=== PATIENT | female | born 1950 | race Caucasian/White ===

== ENCOUNTER 2020-10-02 07:00 | Day surgery (SDC) | payer MEDICARE ==
[2020-10-01 14:12] LABS: BASOPHILS # (AUTO) 0.1 X10'3 (0-0.2); BASOPHILS % (AUTO) 0.7 % (0-1); EOSINOPHILS # (AUTO) 0.1 X10'3 (0-0.9); EOSINOPHILS % (AUTO) 1.3 % (0-6); HEMATOCRIT 47.8 % (35.0-45.0); HEMOGLOBIN 16.2 g/dl (12.0-16.0); LYMPHOCYTES # (AUTO) 1.9 X10'3 (1.1-4.8); LYMPHOCYTES % (AUTO) 20.6 % (21-51); MEAN CORPUSCULAR HGB CONC 33.9 g/dL (33.0-36.5); MEAN CORPUSCULAR VOLUME 97.4 FL (78-98); MEAN PLATELET VOLUME 7.7 FL (7.4-10.4); MONOCYTES # (AUTO) 0.6 X10'3 (0-0.9); NEUTROPHILS # (AUTO) 6.7 X10'3 (1.8-7.7); NEUTROPHILS % (AUTO) 71.4 % (42-75); PLATELET COUNT 358 X10'3 (140-440); RED BLOOD COUNT 4.91 X10'6 (4.20-5.60); RED CELL DISTRIBUTION WIDTH 13.4 % (11.5-14.5); WHITE BLOOD COUNT 9.4 X10'3 (4.5-11.0)
[2020-10-01 14:21] LABS: ANION GAP 7 (8-16); BLOOD UREA NITROGEN 20 MG/DL (7-18); BUN/CREATININE RATIO 22.7 (6.6-38.0); CALCIUM 9.2 MG/DL (8.5-10.1); CHLORIDE 103 MMOL/L (99-107); CREATININE 0.88 MG/DL (0.40-0.90); GLUCOSE 99 MG/DL (70-104); POTASSIUM 4.3 MMOL/L (3.5-5.1); SODIUM 140 MMOL/L (135-145); TOTAL CARBON DIOXIDE 30.3 MMOL/L (24-32); eGFR 63 ML/MIN
[2020-10-01 14:25] LABS: PARTIAL THROMBOPLASTIN TIME 25 SECONDS (22-32)
[~2020-10-02] VITALS: Ht 165.1 cm; Wt 99.0 kg
[2020-10-02] VITALS (11 sets, daily range): BP systolic 101–138; BP diastolic 50–82
[2020-10-02] MEDS ORDERED: LIDOcaine/PRILOcaine 5gm cream TP ONE (07:20)
[2020-10-02] MEDS ORDERED: LOP12.5T PO (07:49)
[2020-10-02] MEDS ORDERED: DULO-31 PO (07:49)
[2020-10-02] MEDS ORDERED: PRAV40TA3 PO (07:49)
[2020-10-02] MEDS ORDERED: MEDR2.5T PO (07:49)
[2020-10-02] MEDS ORDERED: VALA500T PO (07:49)
[2020-10-02] MEDS ORDERED: VALS1TAB80 PO (07:49)
[2020-10-02] MEDS ORDERED: EST1T PO (07:49)
[2020-10-02] MEDS ORDERED: fentaNYL/PF 50MCG/1 ML 2ML syringe ONE (10:33)
[2020-10-02] MEDS ORDERED: verapamil 2.5 mg/ml inj IV ONE (10:33)
[2020-10-02] MEDS ORDERED: midazolam 1 mg/ML 2ml injection ONE (10:33)
[2020-10-02] MEDS ORDERED: LIDOcaine 1% (10mg/ml)w/preservative injection 20ml MDV ONE (10:33)
[2020-10-02] MEDS ORDERED: iohexol 350 MG/ML 50ML vial IV ONE (10:33)
[2020-10-02] MEDS ORDERED: nitroGLYCERIN-Tridil 50MG/D5W 250 ML IV ONE (10:33)
[2020-10-02] MEDS ORDERED: heparin 1,000unit/ml 10ml vial 10 ML ONE (10:33)
[2020-10-02] MEDS ORDERED: iohexol 350MG/ML 100ml bottle IV ONE ×2 (10:34→11:29)
[2020-10-02] MEDS ORDERED: heparin 25,000 UNIT/250ml bag 250 ML IV ONE (11:28)
[2020-10-02 11:52] LABS: ISTAT Hct ART 44 %PCV (35-48); ISTAT O2 SATURATION ARTERIAL 95 % (95-98); ISTAT SOURCE ART
--- NOTE | 2020-10-02 17:09 | NUR ---
Problems reprioritized. Patient report given, questions answered & plan of care reviewed with Ilana ELIZABETH.
[2020-10-13 13:01] LABS: ISTAT Hct MIX 44 %PCV (35-48); ISTAT O2 SATURATION MIX VENOUS 69 % (60-80); ISTAT SOURCE CAP
== END 2020-10-02 18:20 | disposition home or self-care (01) ==
LOC: SSTAY O 07:00
PROVIDERS: ATTEND Internal Medicine Cardiovascular Disease
DX: R94.39 Abnormal result of other cardiovascular function study (principal); R06.02 Shortness of breath; R53.83 Other fatigue; I25.118 Atherosclerotic heart disease of native coronary artery with other forms of angina pectoris; I35.0 Nonrheumatic aortic (valve) stenosis; I47.1 Supraventricular tachycardia; I10 Essential (primary) hypertension; E78.49 Other hyperlipidemia; F32.9 Major depressive disorder, single episode, unspecified; E66.9 Obesity, unspecified; Z68.36 Body mass index [BMI] 36.0-36.9, adult; Z88.8 Allergy status to other drugs, medicaments and biological substances; Z98.890 Other specified postprocedural states; Z79.899 Other long term (current) drug therapy; Z87.891 Personal history of nicotine dependence; Z72.89 Other problems related to lifestyle; Z81.8 Family history of other mental and behavioral disorders; Z80.49 Family history of malignant neoplasm of other genital organs
CPT/HCPCS: 36415; 76937; 80048; 82803; 85014; 85025; 85610; 85730; 93005; 93460; 99152; 99153; C1769; C1894; J1644; J2001; J2250; J3010; Q9967; A4620; A6258; C1751; J3490

== ENCOUNTER 2021-06-29 10:46 | Outpatient (CLI) | payer MEDICARE ==
[~2021-06-29 10:46] MED LIST: ATOR80TA PO; DULO-31 PO; EST1T PO; ISOS60TA71 PO; LOP12.5T PO; MEDR2.5T PO; NAPR-1170 PO; VALA500T PO; VALS1TAB80 PO
== END 2021-06-29 23:59 | disposition home or self-care (01) ==
LOC: CARD DIAG 10:46
PROVIDERS: ATTEND Family Medicine
DX: I08.1 Rheumatic disorders of both mitral and tricuspid valves (principal); I11.0 Hypertensive heart disease with heart failure; I50.9 Heart failure, unspecified; Z95.1 Presence of aortocoronary bypass graft
CPT/HCPCS: 93306

== ENCOUNTER 2023-07-07 08:04 | Outpatient (CLI) | payer MEDICARE ==
[2023-07-07] VITALS (7 sets, daily range): BP systolic 137–147; BP diastolic 66–78; PULSE 71–103; RESP 18; O2SAT 99
[~2023-07-07] VITALS: Ht 162.6 cm; Wt 91.0 kg
[2023-07-07] MEDS ORDERED: normal saline 500ml IV soln 500 ML IV ONE (08:40)
[2023-07-07] MEDS ORDERED: regadenoson 0.4mg/5ml syringe IV ONE (08:40)
[2023-07-07] MEDS ORDERED: nitroGLYCERIN 0.4mg SUBLingual tab SL PRN (08:40)
[2023-07-07] MEDS ORDERED: aminophylline 250mg/10ml inj. IV PRN (08:40)
== END 2023-07-07 23:59 | disposition home or self-care (01) ==
LOC: RAD 08:04
PROVIDERS: ATTEND Internal Medicine Cardiovascular Disease
DX: Z01.810 Encounter for preprocedural cardiovascular examination (principal); I25.10 Atherosclerotic heart disease of native coronary artery without angina pectoris; I50.22 Chronic systolic (congestive) heart failure
CPT/HCPCS: 78452; 93017; A9500; J2785; J7040

== ENCOUNTER 2023-08-17 07:05 | Day surgery (SDC) | payer MEDICARE ==
[2023-08-16 11:25] LABS: BASOPHILS # (AUTO) 0.1 X10'3 (0-0.2); BASOPHILS % (AUTO) 0.8 % (0-1); EOSINOPHILS # (AUTO) 0.1 X10'3 (0-0.9); EOSINOPHILS % (AUTO) 1.2 % (0-6); HEMATOCRIT 45.8 % (35.0-45.0); HEMOGLOBIN 15.3 g/dl (12.0-16.0); LYMPHOCYTES # (AUTO) 1.4 X10'3 (1.1-4.8); LYMPHOCYTES % (AUTO) 15.8 % (21-51); MEAN CORPUSCULAR HEMOGLOBIN 32.8 PG (27.0-31.0); MEAN CORPUSCULAR HGB CONC 33.4 g/dL (33.0-36.5); MEAN CORPUSCULAR VOLUME 98.3 FL (78-98); MEAN PLATELET VOLUME 7.7 FL (7.4-10.4); MONOCYTES # (AUTO) 0.4 X10'3 (0-0.9); MONOCYTES % (AUTO) 4.5 % (2-12); NEUTROPHILS # (AUTO) 7.2 X10'3 (1.8-7.7); NEUTROPHILS % (AUTO) 77.7 % (42-75); PLATELET COUNT 277 X10'3 (140-440); RED BLOOD COUNT 4.66 X10'6 (4.20-5.60); RED CELL DISTRIBUTION WIDTH 13.3 % (11.5-14.5); WHITE BLOOD COUNT 9.2 X10'3 (4.5-11.0)
[2023-08-16 11:29] LABS: ALBUMIN 3.5 G/DL (3.4-5.0); ANION GAP 8 (8-16); BLOOD UREA NITROGEN 23 MG/DL (7-18); BUN/CREATININE RATIO 32.4 (10.0-20.0); CALCIUM 8.9 MG/DL (8.5-10.1); CHLORIDE 108 MMOL/L (99-107); CREATININE 0.71 MG/DL (0.40-0.90); GLUCOSE 108 MG/DL (70-104); POTASSIUM 4.1 MMOL/L (3.5-5.1); SODIUM 144 MMOL/L (135-145); TOTAL CARBON DIOXIDE 27.8 MMOL/L (24-32); eGFR 80 ML/MIN
[2023-08-16 11:33] LABS: APTT 26 SECONDS (22-32)
[2023-08-17] VITALS (13 sets, daily range): BP systolic 104–124; BP diastolic 55–74; PULSE 63–80; RESP 14–18; TEMP 98.1; O2SAT 94–97
[~2023-08-17] VITALS: Ht 165.1 cm; Wt 91.7 kg
[2023-08-17] MEDS ORDERED: diphenhydrAMINE 25mg capsule PO PRN (07:30)
[2023-08-17] MEDS ORDERED: normal saline 1,000 ML IV SCH (07:30)
[2023-08-17] MEDS ORDERED: LORazepam 0.5 MG tablet PO PRN (07:30)
[2023-08-17] MEDS ORDERED: verapamil 2.5 mg/ml inj IV ONE (08:14)
[2023-08-17] MEDS ORDERED: heparin 1,000unit/ml 10ml vial 10 ML ONE (08:14)
[2023-08-17] MEDS ORDERED: LIDOcaine 1% 30ml preserv. free vial ONE (08:14)
[2023-08-17] MEDS ORDERED: iohexol 350 MG/ML 50ML vial IV ONE (08:14)
[2023-08-17] MEDS ORDERED: iohexol 350MG/ML 100ml bottle IV ONE (08:14)
[2023-08-17] MEDS ORDERED: fentaNYL/PF 50MCG/1 ML 2ML syringe ONE (08:14)
[2023-08-17] MEDS ORDERED: midazolam 1 mg/ML 2ml injection ONE ×2 (08:14→09:29)
[2023-08-17] MEDS ORDERED: DICL100G59 (08:20)
[2023-08-17] MEDS ORDERED: LEVO50TA PO (08:20)
[2023-08-17] MEDS ORDERED: LEVO75TA PO (08:20)
[2023-08-17] MEDS ORDERED: LOSA25TA41 PO (08:20)
[2023-08-17] MEDS ORDERED: CELE-148 PO (08:20)
[2023-08-17] MEDS ORDERED: METO-384 PO (08:20)
[2023-08-17] MEDS ORDERED: FURO40TA4 PO (08:20)
[2023-08-17] MEDS ORDERED: SPIR25TA PO (08:22)
[2023-08-17] MEDS ORDERED: UBID100C16 PO (08:22)
[2023-08-17] MEDS ORDERED: ASPI-611 PO (08:22)
[2023-08-17] MEDS ORDERED: iron PO (08:22)
[2023-08-17] MEDS ORDERED: nitroGLYCERIN 500mcg/5mL D5W 5 ML IV ONE (08:38)
[2023-08-17] MEDS ORDERED: normal saline 1000ml 1,000 ML IV ONE (10:45)
== END 2023-08-17 15:00 | disposition home or self-care (01) ==
LOC: SSTAY O 07:05
PROVIDERS: ATTEND Internal Medicine Cardiovascular Disease
DX: I25.810 Atherosclerosis of coronary artery bypass graft(s) without angina pectoris (principal); I25.10 Atherosclerotic heart disease of native coronary artery without angina pectoris; I25.82 Chronic total occlusion of coronary artery; I11.0 Hypertensive heart disease with heart failure; I50.20 Unspecified systolic (congestive) heart failure; I48.0 Paroxysmal atrial fibrillation; I47.10 Supraventricular tachycardia, unspecified; G47.30 Sleep apnea, unspecified; E78.5 Hyperlipidemia, unspecified; Z79.899 Other long term (current) drug therapy; Z79.82 Long term (current) use of aspirin
CPT/HCPCS: 36415; 76937; 80048; 85025; 85610; 85730; 93005; 93459; 99152; 99153; J1644; J2250; J3010; J3490; J7030; Q9967; A6258; A6402; A6449; C1725; C1894